=== PATIENT | male | born 1960 | race Native Hawaiian/Other Pacific Islander ===

== ENCOUNTER 2017-04-10 14:41 | Outpatient (CLI) | payer BC ==
[~2017-04-10 14:41] MED LIST: AMLO10TA PO; ASA LOW STR81 MG PO; BENICAR HCT1 TA2 PO; COLC0.6T6 PO; DICL1GEL2 TOP; ESCI20TA OR; LEXAPRO10 MG OR; MOBIC7.5 M1 PO
== END 2017-04-10 16:00 | disposition home or self-care (01) ==
LOC: RAD 14:41
DX: R06.02 Shortness of breath (principal)

== ENCOUNTER 2017-05-05 07:53 | Outpatient (CLI) | payer BC | END 2017-05-05 19:08 | disposition home or self-care (01) | LOC: RAD 07:53 | DX: R13.10 Dysphagia, unspecified (principal) ==

== ENCOUNTER 2022-08-04 10:30 | Outpatient (CLI) | payer OTHER | END 2022-08-04 19:00 | disposition home or self-care (01) | LOC: RAD 10:30 | PROVIDERS: ATTEND Internal Medicine | DX: M79.672 Pain in left foot (principal); M25.572 Pain in left ankle and joints of left foot ==